=== PATIENT | female | born 1970 | race Two or more races ===

== ENCOUNTER → 2024-02-12 | Emergency (ER) | payer OTHER ==
[~2024-02-12] VITALS: Ht 167.6 cm; Wt 112.9 kg
[~2024-02-12] MED LIST: SYNTHROID50 MCG PO; SYNTHROID75 MCG
== END | disposition left against medical advice (07) ==
LOC: ER 18:32
DX: Z53.21 Procedure and treatment not carried out due to patient leaving prior to being seen by health care provider (principal)